=== PATIENT | male | born 2000 | race Caucasian/White ===

== ENCOUNTER 2020-04-30 22:28 | Emergency (ER) | payer SELFPAY ==
[2020-04-30 22:29] VITALS: BP 117/68; PULSE 68; RESP 18; TEMP 36.6; O2SAT 95; BMI 19.8
--- NOTE | 2020-04-30 23:01 | RAD_ITS ---
STUDY: X-RAY - RIGHT FOOT CLINICAL: Male, 20 years old. Pain and right foot after fall. History of previous fracture. TECHNIQUE: 3 view(s) of the foot. COMPARISON: None. FINDINGS: Normal talus, calcaneus, and tarsal bones. Normal visualized subtalar, talonavicular, calcaneocuboid, tarsal and tarsometatarsal articulations. Normal metatarsi. Narrowing of the metatarsophalangeal joint of the great toe. Normal tibial and fibular sesamoid bones. Normal interphalangeal joint of the great toe. Normal phalanges of the great toe. Normal second through fifth metatarsophalangeal joints. Normal interphalangeal joints and phalanges of the lesser toes. The soft tissue structures are unremarkable. RAD/Foot min 3 Views IMPRESSION: No acute fracture or dislocation. Electronically Signed: Ham Christina DO at 23:17 EDT Tel [phone], Service support ,
--- NOTE | 2020-04-30 23:06 | ED.VISSUMM ---
- ER Visit Summary Date of Service: 04/30/20 Chief Complaint: Bilateral foot pain and swelling History of Present Illness: 20-year-old male with prior right foot fracture approximately a year ago. Needed to be casted at that time. No surgery. States that he stepped awkwardly on it today and now is having pain and swelling again to the lateral fifth proximal metatarsal. No other injuries. No other complaints. Physical Examination: Well-appearing young male vital signs stable afebrile. HEENT exam unremarkable. No trauma. Neck nontender. Full range of motion. Lungs clear to auscultation bilaterally. Heart regular rhythm no murmur. Chest wall nontender. Abdomen soft nontender. Pelvic girdle intact. Patient is moving all 4 extremities. Neurovascular intact. Specifically right knee, lower leg and ankle are nontender nonswollen neurovascular intact with full range of motion. Right foot has normal DP pulse. Dorsi plantarflexion intact. Able to wiggle his toes. Normal cap refill touch sensation. The only area of tenderness and swelling is a proximal end of the fifth or small toe metatarsal. Skin is intact. Test Results: Right foot x-ray 3 views read by myself and the radiologist showed no acute fracture nor dislocation. Read as normal. Emergency Department Course and Treatment: Repeat exam doing well. I did specifically explained to the patient and his mother that if this is not improving he needs followed up. Sometimes are nondisplaced small fracture that are not seen on the first film. Ice and elevate. Motrin. Increase ambulation as tolerated. Treatment Plan: Ice and elevate. Tylenol Motrin. Follow-up with podiatry if not improving. Disposition: Discharge Impression: Acute right foot sprain and contusion This note was generated with [employer] dictation software. It may contain incorrect words, spelling, and punctuation that were not noted in review of the chart prior to signing ED Disposition - Plan for ED Patient: Referrals: NOT,DEFINED [NON-STAFF] -
--- NOTE | 2020-04-30 23:26 | DCINST.ED_ITS ---
ED Disposition - Plan for ED Patient: Disposition: Home or Assisted Living Instructions: ED FOOT CONTUSION Referrals: Ekaterina Barnes DPM [STAFF PHYSICIAN] - 1 Week if not improving Additional Instructions: X-rays were read as negative. No obvious fracture seen. Ice and elevate. Motrin for pain and swelling. Increase activity as tolerated. If not proving follow-up with local retail associate manager bilingual.
== END 2020-04-30 23:36 | disposition home or self-care (01) ==
PROVIDERS: Emergency Provider Emergency Medicine
DX: S93.601A Unspecified sprain of right foot, initial encounter (principal); S90.31XA Contusion of right foot, initial encounter; F17.290 Nicotine dependence, other tobacco product, uncomplicated; F90.9 Attention-deficit hyperactivity disorder, unspecified type; Z79.899 Other long term (current) drug therapy; X50.1XXA Overexertion from prolonged static or awkward postures, initial encounter; Y93.01 Activity, walking, marching and hiking; Y92.89 Other specified places as the place of occurrence of the external cause; Y99.8 Other external cause status
CPT/HCPCS: 73630; 99283